=== PATIENT | female | born 1990 | race American Indian/Alaskan Native ===

== ENCOUNTER 2017-10-11 16:11 | Emergency (ER) | payer SELFPAY ==
[2017-10-11 17:25] LABS: HCG Qualitative,Urine Positive (Negative)
[2017-10-11 17:31] LABS: Bilirubin,Urine NEG (Negative); Blood,Urine NEG (Negative); Color,Urine Yellow (Yellow); Mucus,Urine FEW /HPF; Protein,Urine <15 mg/dL mg/dL (Negative); Urobilinogen,Urine < 2.0 mg/dL (<2.0); WBC,Urine < 1.0 /HPF (0.0-6.0)
[2017-10-11] MEDS ORDERED: TYLENOL PO ONE (20:41)
--- NOTE | 2017-10-11 20:46 | Emergency Department Report ---
Chief Complaint: Abdominal Pain Stated Complaint: SICK Time Seen by Provider: 10/11/17 20:33 - HPI History of Present Illness: The patient is a 27-year-old female , who presents for evaluation of abdominal pain. The patient was ports lower abdominal pain for the past 2 days , crampy in quality, constant. The patient denies fever, trauma to the abdomen, chills, night sweats, diarrhea, blood in the stool, dark tarry stool, dysuria, hematuria, flank pain, vaginal discharge, vaginal bleeding. - Exam Vital Signs: Vital Signs 10/11/17 16:30 Temperature 98.9 F Pulse Rate 80 Respiratory 16 Rate Blood Pressure 130/48 O2 Sat by Pulse 100 Oximetry MSE screening note: Focused history and physical exam performed. Due to findings the following was ordered: ED Disposition for MSE Condition: Undetermined Instructions: Abdominal Pain (ED) Referrals: PRIMARY CARE, [Primary Care Provider] - 3-5 Days
[2017-10-11 21:05] LABS: Basophils # (Auto) 0.1 K/mm3 (0.0-0.1); Basophils % (Auto) 0.9 % (0.0-1.8); Eosinophils # (Auto) 0.1 K/mm3 (0.0-0.4); Eosinophils % (Auto) 1.7 % (0.0-4.3); Hematocrit 36.3 % (30.3-42.9); Hemoglobin 11.5 gm/dl (10.1-14.3); Lymphocytes # (Auto) 1.8 K/mm3 (1.2-5.4); Lymphocytes % (Auto) 30.9 % (13.4-35.0); Mean Corpuscular HGB Conc 32 % (30-34); Mean Corpuscular Volume 75 fl (79-97); Monocytes # (Auto) 0.4 K/mm3 (0.0-0.8); Monocytes % (Auto) 6.8 % (0.0-7.3); Platelet Count 309 K/mm3 (140-440); Red Blood Count 4.86 M/mm3 (3.65-5.03); Red Cell Distribution Width 18.3 % (13.2-15.2)
[2017-10-11 21:06] LABS: Mean Corpuscular Hemoglobin 24 pg (28-32)
[2017-10-11 21:21] LABS: Alanine Aminotransferase 11 units/L (7-56); Albumin 3.9 g/dL (3.9-5); BUN/Creatinine Ratio 10; Blood Urea Nitrogen 6 mg/dL (7-17); Hemolysis Index 14
--- NOTE | 2017-10-11 22:54 | Ultrasound Report ---
FINAL REPORT PROCEDURE: US OB < = 14 WEEKS FETUS TECHNIQUE: Real-time transabdominal sonography in multiple planes of pelvis was performed with image documentation. This examination was performed without Doppler. Vascular abnormalities, including ovarian torsion, will not be detectable without Doppler evaluation. CPT 21195 HISTORY: abd pain, preg COMPARISON: No prior studies are available for comparison. FINDINGS: UTERUS Size: 9 x 5 x 6 cm. Endometrial thickness: 6 mm. Orientation: anteverted. Cervix: Normal. Fibroids/masses: None. RIGHT Ovary: 3.1 x 1.8 x 2.1 cm. Appearance: Normal. LEFT Ovary: 3.7 x 2.9 x 2.5 cm. Appearance: Normal 2.3 centimeters cystic lesion is noted. Otherwise demonstrates normal Doppler signal.. Pelvic fluid: None. Other: None. IMPRESSION: No evidence of any intrauterine gestational sac at the present time. Clinical correlation and follow-up studies are recommended. 2.3 centimeters cystic lesion in the left ovary most likely represents a dominant follicle. Please note that an ectopic gestation cannot be excluded on the sonographic findings alone.
--- NOTE | 2017-10-11 23:58 | Emergency Department Report ---
ED Abdominal Pain HPI - General Chief Complaint: Abdominal Pain Stated Complaint: SICK Time Seen by Provider: 10/11/17 20:33 Source: patient Mode of arrival: Ambulatory Limitations: No Limitations - History of Present Illness Initial Comments: This is a 27 y.o. female that presents with abdominal pain for 3 days. She took a test at home that was positive. LMP 09/12/2017. . Patient reports pain as sharp intermittent pain in lower abdomen, that is non- radiating. Denies fever, chills, vaginal bleeding or discharge, diarrhea, and tarry stools. Denies recent trauma or injury. MD Complaint: abdominal pain -: days(s) (3) Location: LUQ, RUQ Radiation: none Migration to: no migration Severity: mild Severity scale (0 -10): 3 Quality: cramping, sharp Consistency: intermittent Improves With: nothing Worsens With: nothing Associated Symptoms: denies other symptoms - Related Data LMP Date: 09/12/17 LMP (females 10-50): 1 month Allergies Allergy/AdvReac Type Severity Reaction Status Date / Time No Known Allergies Allergy Unverified 10/11/17 16:38 ED Review of Systems ROS: Stated complaint: SICK Other details as noted in HPI Constitutional: denies: chills, fever Respiratory: denies: cough, shortness of breath, wheezing Cardiovascular: denies: chest pain, palpitations Gastrointestinal: abdominal pain. denies: nausea, diarrhea Genitourinary: denies: urgency, dysuria, frequency, discharge, abnormal menses, dyspareunia Skin: denies: rash, lesions Neurological: denies: headache, weakness, numbness, paresthesias Psychiatric: denies: anxiety, depression ED Past Medical Hx - Past Medical History Previous Medical History?: No - Surgical History Past Surgical History?: Yes Additional Surgical History: - Social History Smoking Status: Never Smoker Substance Use Type: None ED Physical Exam - General Limitations: No Limitations General appearance: alert, in no apparent distress - Respiratory Respiratory exam: Present: normal lung sounds bilaterally. Absent: respiratory distress, wheezes, rales, rhonchi, stridor, accessory muscle use, decreased breath sounds - Cardiovascular Cardiovascular Exam: Present: regular rate, normal rhythm, normal heart sounds. Absent: bradycardia, tachycardia, irregular rhythm, systolic murmur, diastolic murmur, rubs, gallop - GI/Abdominal GI/Abdominal exam: Present: soft, tenderness (RLQ), normal bowel sounds. Absent : distended, guarding, rebound, rigid, organomegaly, mass - Extremities Exam Extremities exam: Present: normal inspection - Back Exam Back exam: Present: normal inspection. Absent: CVA tenderness (R), CVA tenderness (L), rash noted - Neurological Exam Neurological exam: Present: alert, oriented X3, normal gait - Psychiatric Psychiatric exam: Present: normal affect, normal mood - Skin Skin exam: Present: warm, dry, intact, normal color. Absent: rash ED Course Vital Signs 10/11/17 16:30 Temperature 98.9 F Pulse Rate 80 Respiratory 16 Rate Blood Pressure 130/48 O2 Sat by Pulse 100 Oximetry ED Medical Decision Making - Lab Data Result diagrams: 10/11/17 20:51 10/11/17 20:51 - Radiology Data Radiology results: report reviewed OB US: No evidence of any intrauterine gestational sac at the present time. Clinical correlation and follow-up studies are recommended. 2.3 centimeters cystic lesion in the left ovary most likely represents a dominant follicle. Please note that an ectopic gestation cannot be excluded on the sonographic findings alone. - Medical Decision Making 27 y.o. A.A. female that presents with low abdominal pain during . Patient examined by me and Dr. Casanova. No distress noted. Given tylenol 650 mg po once in ER. Vitals stable. Obtained CBC, CMP, hcg quant, UA and urine hcg. Quant 1517 all other labs wnl. Positive , elevated quant. OB US obtained. OB US: No evidence of any intrauterine gestational sac at the present time. Clinical correlation and follow-up studies are recommended. 2.3 centimeters cystic lesion in the left ovary most likely represents a dominant follicle. Please note that an ectopic gestation cannot be excluded on the sonographic findings alone. Consulted with Dr. Deng. Informed patient of results and possibility of ectopic , will need repeat HCG quant and US in 48 hours to r/o ectopic . Referred to [facility] for f/u or ER in 48 hours. Discharged home in stable condition. Critical care attestation.: If time is entered above; I have spent that time in minutes in the direct care of this critically ill patient, excluding procedure time. ED Disposition Clinical Impression: Abdominal pain during in first trimester Disposition: DC-01 TO HOME OR SELFCARE Is pt being admited?: No Does the pt Need Aspirin: No Condition: Undetermined Instructions: Abdominal Pain (ED), (ED) Additional Instructions: Increase fluid intake. Take over the counter vitamins. Follow up with [facility] in 24-72 hours. Return to ER if vaginal bleeding and abdominal pain. Referrals: SUSANNAH WILKES MD [Staff Physician] - 3-5 Days [facility] [Provider Group] - 3-5 Days [facility] [Provider Group] - 3-5 Days Time of Disposition: 00:12 Print Language: FAROESE
[2017-10-12 00:27] VITALS: BP 114/60
== END 2017-10-12 00:25 | disposition home or self-care (01) ==
LOC: ED 16:11
DX: O26.891 Other specified pregnancy related conditions, first trimester (principal); Z3A.01 Less than 8 weeks gestation of pregnancy; R10.30 Lower abdominal pain, unspecified
CPT/HCPCS: 36415; 76801; 80053; 81001; 81025; 84702; 85025